=== PATIENT | female | born 1970 | race African-American/Black ===

== ENCOUNTER 2016-08-16 09:10 | Outpatient (CLI) | payer MEDICAID ==
--- NOTE | 2016-08-16 10:18 | Mammography Report ---
BILATERAL MAMMOGRAM: No previous studies available. CAD study utilized. FINDINGS: Bilateral dense breast parenchyma. Scattered calcifications in right breast appear to be benign. No distinct cluster of calcification or pleomorphism. No distinct mass. Normal axilla. IMPRESSION: Probably benign calcifications. Comparison with previous studies is recommended. If previous studies not available, 6 month follow-up with mammogram advised. BI-RADS CATEGORY: 3 = Probably benign ACR BI-RADS MAMMOGRAPHIC CODES: 0 = Needs additional imaging evaluation; 1 = Negative; 2 = Benign; 3 = Probably benign; 4 = Suspicious; 5 = Malignant; 6 = Known biopsy-proven malignancy COMMENT: 1. Dense breast tissue, i.e., adenosis, fibrocystic changes, etc., may obscure an underlying neoplasm. 2. Approximately 10% of cancers are not detected with mammography. 3. A negative mammography report should not delay biopsy if a clinically suspicious mass is present. COMMENT: Patient follow-up letters are generated in [employer].
== END 2016-08-16 09:11 | disposition home or self-care (01) ==
LOC: MAMMO 09:10
PROVIDERS: ATTEND Registered Nurse Registered Nurse First Assistant
DX: Z12.31 Encounter for screening mammogram for malignant neoplasm of breast (principal)
CPT/HCPCS: 77067; G0202